=== PATIENT | female | born 1975 | race Caucasian/White ===

== ENCOUNTER 2017-04-14 18:05 | Emergency (ER) | payer OTHER ==
[~2017-04-14] VITALS: Ht 172.7 cm; Wt 120.0 kg
[2017-04-14 18:07] VITALS: BP 203/130; PULSE 110; RESP 18; TEMP 98.2; O2SAT 98
--- NOTE | 2017-04-14 18:53 | RADRPT ---
EXAM DATE/TIME: 04/14/2017 18:32 [place] COMPARISON: No previous studies available for comparison. INDICATIONS : Left knee pain after getting hit with a door today. MEDICAL HISTORY : None. SURGICAL HISTORY : None. ENCOUNTER: Initial ACUITY: 1 day PAIN SCORE: 8/10 LOCATION: Left knee. FINDINGS: Four view examination of the left knee demonstrates no evidence of fracture or dislocation. Bony min eralization is normal. The articular surfaces are intact. The suprapatellar soft tissues have a nor mal configuration. CONCLUSION: 1. No acute fracture or dislocation. Roger Naranjo MD on April 14, 2017 at 18:51 Board Certified Radiologist. This report was verified electronically.
[2017-04-14] MEDS ORDERED: METF1000 PO (19:26)
[2017-04-14] MEDS ORDERED: MELO7.5T27 PO (19:26)
[2017-04-14] MEDS ORDERED: LISI2.5T3 PO (19:26)
[2017-04-14] MEDS ORDERED: NORC5TAB PO (19:38)
[2017-04-14] MEDS ORDERED: ACETAMINOPHEN/HYDROcodone 325 MG/5 MG TAB PO ONE (19:45)
--- NOTE | 2017-04-14 19:45 | PD ---
HPI Chief Complaint: Injury Time Seen by Provider: 19:31 Travel History International Travel<30 days: No Contact w/Intl Traveler<30days: No Traveled to known affect area: No History of Present Illness HPI 41-year-old white female presents emergency department with complaints of left knee pain [place]. She states that she has pain in her knees normally from arthritis and uses a wheelchair. Patient also states that she has had a tetanus shot in the last 5 years. Pain is moderate but can be severe with movement. No numbness or tingling. No other injuries. Worsened by movement. Some relief with remaining still ice. PFSH Past Medical History Narrative Medical Hypertension, diabetes, osteoarthritis Asthma: Yes Diabetes: Yes Patient Takes Glucophage: Yes Hypertension: Yes Immunizations Current: Yes ?: Not LMP: 03/21/17 : 3 Para: 1 Miscarriage: 2 Dilation and Curettage (D&C): Yes (x2) Past Surgical History Cholecystectomy: Yes Tonsillectomy: Yes Social History Alcohol Use: Yes (occ) Tobacco Use: No Substance Use: No Allergies-Medications (Allergen,Severity, Reaction): Coded Allergies: Sulfa (Sulfonamide Antibiotics) (Verified Allergy, Unknown, 04/14/17) aspirin (Verified Allergy, Unknown, 04/14/17) yellow dye (Verified Allergy, Unknown, 04/14/17) Reported Meds & Prescriptions Reported Meds & Active Scripts Active [place] (Hydrocodone-Acetaminophen) 5 Mg-325 Mg Tab 1 Tab PO Q6H PRN Reported Metformin (Metformin HCl) 1,000 Mg Tab 1,000 Mg PO BIDPC Lisinopril 2.5 Mg Tab 2.5 Mg PO DAILY Meloxicam 7.5 Mg Tab 7.5 Mg PO DAILY Review of Systems Except as stated in HPI: all other systems reviewed are Neg Physical Exam Narrative GENERAL: Well-developed, well-nourished in no apparent distress. Nontoxic appearing. HEAD: Normocephalic, atraumatic. EYES: Pupils equal round and reactive. Extraocular motions intact. No scleral icterus. No injection or drainage. ENT: Nose clear. Throat without erythema, tonsillar hypertrophy or exudate. Uvula midline. Airway patent. NECK: Trachea midline. Supple, nontender, moves head freely. No central bony tenderness or spasm. CARDIOVASCULAR: Regular rate and rhythm without murmurs, gallops, or rubs. RESPIRATORY: Clear to auscultation. Breath sounds equal bilaterally. No wheezes , rales, or rhonchi. GASTROINTESTINAL: Abdomen soft, non-tender, nondistended. No hepato-splenomegaly , or palpable masses. No guarding. EXTREMITIES: No clubbing, cyanosis, or edema. examination the left lower extremity reveals an abrasion over the patella. She has soft tissue tenderness. No joint effusion. She has full extension but has limited flexion. No instability. No pain in the foot, ankle, hip. The right lower extremity as well as upper extremities are without localizing bony tenderness or deformity. BACK: Nontender without deformity. No flank tenderness. NEUROLOGICAL: Awake, alert and oriented x 3 .Cranial nerves grossly intact. Motor and sensory grossly within normal limits. Normal speech. Data Data Last Documented VS Vital Signs Date Time Temp Pulse Resp B/P (MAP) Pulse Ox O2 Delivery O2 Flow Rate FiO2 04/14/17 18:07 98.2 110 18 203/130 (154) 98 Orders Orders Knee, Complete (4vws) (04/14/17 ) Ed Discharge Order (04/14/17 19:36) Ice/Cold Pack (04/14/17 19:36) Splint Or Brace Apply/Monitor (04/14/17 19:36) Acetamin-Hydrocod 325-5 Mg ([place] 5-325 (04/14/17 19:45) MDM Medical Decision Making Medical Screen Exam Complete: Yes Emergency Medical Condition: Yes Medical Record Reviewed: Yes Interpretation(s) Left knee: Negative for acute bony injury. Differential Diagnosis MDM: High Differential diagnoses: Fracture, sprain, strain, dislocation, contusion, neurovascular injury Narrative Course X-ray is negative for bony injury. Patient was given Lortab 5 mg p.o., Anjel wrap.Ice pack applied. Diagnosis Primary Impression: Contusion of left knee Qualified Codes: S80.02XA - Contusion of left knee, initial encounter Patient Instructions: General Instructions Additional Instructions: Rest. Elevation. Hydrocodone. Anjel wrap. Ice packs for next few days. Follow-up with medical doctor in 1 week. Med/Other Pt SpecificInfo: Prescription(s) given Scripts Hydrocodone-Acetaminophen ([place]) 5 Mg-325 Mg Tab 1 TAB PO Q6H Y for PAIN, #10 TAB 0 Refills Prov: Hamilton Everett MD 04/14/17 Disposition: 01 DISCHARGE HOME Condition: Stable Asif Reyes Apr 14, 2017 19:45
== END 2017-04-14 20:13 | disposition home or self-care (01) ==
LOC: NEPD 18:05
DX: S80.02XA Contusion of left knee, initial encounter (principal); I10 Essential (primary) hypertension; E11.9 Type 2 diabetes mellitus without complications; J45.909 Unspecified asthma, uncomplicated; W22.8XXA Striking against or struck by other objects, initial encounter; Y92.39 Other specified sports and athletic area as the place of occurrence of the external cause; Z79.899 Other long term (current) drug therapy; Z88.2 Allergy status to sulfonamides; Z88.6 Allergy status to analgesic agent
CPT/HCPCS: 73564; 99283